=== PATIENT | female | born 1995 | race American Indian/Alaskan Native ===

== ENCOUNTER 2020-07-10 03:54 | Emergency (ER) | payer OTHER ==
[2020-07-10] MEDS ORDERED: LORazepam 2 MG/ML VIAL IM STA (04:29)
--- NOTE | 2020-07-10 04:31 | Emergency Department Report ---
ED Anxiety HPI - General Chief Complaint: Anxiety Stated Complaint: ANXIETY/PANIC ATTACK Time Seen by Provider: 07/10/20 04:28 Source: patient, EMS Mode of arrival: Stretcher - History of Present Illness Initial Comments: 24-year-old female presents emergency department complaining of having a panic attack and anxiety flare after speaking with her sister on FaceTime and learning that her aunt has been in the hospital for the last 2 weeks with COVID-19. Patient states that no bad things were discovered about her other than the fact that she has been hospitalized. 6 that when she learned this information she began to feel her heart racing and and chest pressure and getting a little short of breath which continue to fluctuate since the onset and she has been having trouble calming down resulting in her calling EMS to bring to the hospital for further valuation and treatment options. She reports no fevers, chills, sweats, nausea, vomiting, trauma. No loss of consciousness Previous History of Same: Yes Severity: moderate, severe Quality: constant Provoking factors: emotional stress Improves With: nothing Worsens With: thinking about event Associated symptoms: shortness of breath. denies: diaphoresis, fever/chills, anorexia, malaise, seizure, syncope, weakness - Related Data Allergies/Adverse Reactions: Allergies Allergy/AdvReac Type Severity Reaction Status Date / Time No Known Allergies Allergy Unverified 07/10/20 04:28 ED Review of Systems ROS: Stated complaint: ANXIETY/PANIC ATTACK Other details as noted in HPI ED Past Medical Hx - Past Medical History Previous Medical History?: Yes Hx Psychiatric Treatment: Yes (Anxiety) - Surgical History Past Surgical History?: No - Social History Smoking Status: Never Smoker Substance Use Type: Marijuana ED Physical Exam - General Limitations: No Limitations General appearance: alert, in no apparent distress - Head Head exam: Present: atraumatic, normocephalic - Eye Eye exam: Present: normal appearance - ENT ENT exam: Present: normal exam, normal orophraynx, mucous membranes moist - Neck Neck exam: Present: normal inspection - Respiratory Respiratory exam: Present: normal lung sounds bilaterally. Absent: respiratory distress, wheezes, rales, rhonchi, chest wall tenderness, decreased breath sounds - Cardiovascular Cardiovascular Exam: Present: regular rate, normal rhythm. Absent: systolic murmur, diastolic murmur, rubs, gallop - GI/Abdominal GI/Abdominal exam: Present: soft, normal bowel sounds - Extremities Exam Extremities exam: Present: normal inspection - Back Exam Back exam: Present: normal inspection - Neurological Exam Neurological exam: Present: alert, oriented X3 - Psychiatric Psychiatric exam: Present: anxious. Absent: normal affect, normal mood, flat affect, manic, homicidal ideation, suicidal ideation - Skin Skin exam: Present: warm, dry, intact, normal color. Absent: rash ED Course Vital Signs 07/10/20 07/10/20 03:59 06:29 Temperature 98.2 F Pulse Rate 104 H 78 Respiratory 18 16 Rate Blood Pressure 107/75 Blood Pressure 112/67 [Left] O2 Sat by Pulse 100 100 Oximetry ED Medical Decision Making - EKG Data EKG shows normal: sinus rhythm Rate: normal - EKG Data Interpretation: normal EKG 07/10/20 04:31 Heart rate 86 - Medical Decision Making This patient presents with symptoms consistent with acute anxiety reaction/panic attack. Low suspicion for acute coronary process including ACS, pulmonary embolism, thoracic aortic dissection. Denies any ingestions or any other medical complaints. No evidence of alcohol withdrawal symptoms. Presentation not consistent with overt toxic syndrome, ingestion given history and physical. Presentation not consistent with organic or medical emergency at this time. No acute indication for psychiatric consultation. Cautious return precautions discussed with full understanding. The patient is is is resting comfortably no acute distress panic attack appears to be totally resolved as she is no longer clutching her chest and no longer reporting any shortness of breath palpitations or any sense of impending doom Plan: Medication, psych follow-up PRN Critical care attestation.: If time is entered above; I have spent that time in minutes in the direct care of this critically ill patient, excluding procedure time. ED Disposition Clinical Impression: Anxiety, Panic attack Disposition: DC-01 TO HOME OR SELFCARE Is pt being admited?: No Does the pt Need Aspirin: No Condition: Stable Instructions: Panic Attack, [id number], Managing Anxiety, Adult, Information About Deep Brain Stimulation Referrals: NORMA GRAY MD [Staff Physician] - 3-5 Days
--- NOTE | 2020-07-10 05:59 | XRay Report ---
CHEST 2 VIEWS INDICATION / CLINICAL INFORMATION: cp. COMPARISON: None available. FINDINGS: SUPPORT DEVICES: None. HEART / MEDIASTINUM: No significant abnormality. LUNGS / PLEURA: No significant pulmonary or pleural abnormality. No pneumothorax. ADDITIONAL FINDINGS: No significant additional findings. IMPRESSION: 1. No acute findings. Signer Name: Humberto Zepeda MD Signed: 07/10/2020 5:55 AM Workstation Name: [id number]
[2020-07-10 06:48] VITALS: BP 112/67
== END 2020-07-10 06:53 | disposition home or self-care (01) ==
LOC: ED 03:54
DX: F41.0 Panic disorder [episodic paroxysmal anxiety] (principal); F41.9 Anxiety disorder, unspecified; F12.90 Cannabis use, unspecified, uncomplicated; Z79.899 Other long term (current) drug therapy
CPT/HCPCS: 71046; 93005; 96372; 99283; J2060

== ENCOUNTER 2020-08-03 18:02 | Emergency (ER) | payer OTHER ==
[2020-08-03 18:40] VITALS: BP 107/86
[2020-08-03 19:29] LABS: Basophils # (Auto) 0.1 K/mm3 (0.0-0.1); Basophils % (Auto) 1.4 % (0.0-1.8); Eosinophils # (Auto) 0.2 K/mm3 (0.0-0.4); Eosinophils % (Auto) 3.3 % (0.0-4.3); Hematocrit 36.7 % (30.3-42.9); Lymphocytes # (Auto) 2.6 K/mm3 (1.2-5.4); Lymphocytes % (Auto) 37.5 % (13.4-35.0); Mean Corpuscular HGB Conc 35 % (30-34); Mean Corpuscular Volume 84 fl (79-97); Monocytes # (Auto) 0.6 K/mm3 (0.0-0.8); Monocytes % (Auto) 8.3 % (0.0-7.3); Platelet Count 297 K/mm3 (140-440); Red Cell Distribution Width 12.6 % (13.2-15.2)
--- NOTE | 2020-08-03 19:55 | Emergency Department Report ---
ED Chest Pain HPI - General Chief Complaint: Chest Pain Stated Complaint: CHEST PAINS Time Seen by Provider: 08/03/20 18:37 Source: patient Mode of arrival: Ambulatory Limitations: No Limitations - History of Present Illness Initial Comments: This is a 24-year-old female nontoxic, well nourished in appearance, no acute signs of distress presents to the ED with c/o of intermittent midsternal chest pain with shortness of breath. Patient stated that she is currently anxious and has history of anxiety. Patient stated she is out of her Klonopin medication and is requesting for refills. Patient currently denies any chest pain or shortness of breath but stated does have some anxiety. Patient denies following up with PCP but stated went to emergency room and get refills of Klonopin. Patient stated every time she gets anxious she develops the symptoms of intermittent chest pain or shortness of breath. Patient denies any suicidal homicidal ideation. Denies any depression. Patient denies any upper respiratory symptoms. Patient denies any shortness of breath, chest pain, hemoptysis, fever, chills, nausea, vomiting, headache, stiff neck, numbness, tingling, abdominal pain. Patient denies pleuritic chest pain. Patient denies any recent travels or long car rides. Patient denies any recent surgeries or any sick contacts. Patient denies any drug allergies or significant past medical history. MD Complaint: chest pain -: days(s) Pain Radiation: none Severity scale (0 -10): 0 Consistency: intermittent, now resolved Improves With: nothing Worsens With: nothing re: denies: nausea, vomting, diaphoresis, dyspnea, sense of impending doom Other Symptoms: denies: cough, fever, syncope, rash, acid taste in mouth, leg swelling, palpitations, burping Treatments Prior to Arrival: none Aspirin use within the Past 7 Days: (0) No - Related Data Allergies Allergy/AdvReac Type Severity Reaction Status Date / Time No Known Allergies Allergy Unverified 07/10/20 04:28 Heart Score - HEART Score History: Slightly suspicious EKG: Normal Age: < 45 Risk factors: No known risk factors Troponin: < normal limit HEART Score: 0 ED Review of Systems ROS: Stated complaint: CHEST PAINS Other details as noted in HPI Constitutional: denies: chills, fever Eyes: denies: eye pain, eye discharge, vision change ENT: denies: ear pain, throat pain Respiratory: shortness of breath. denies: cough, SOB with exertion, SOB at rest, wheezing Cardiovascular: chest pain. denies: palpitations, dyspnea on exertion, orthopnea, edema, syncope, paroxysmal nocturnal dyspnea Endocrine: no symptoms reported Gastrointestinal: denies: abdominal pain, nausea, diarrhea Genitourinary: denies: urgency, dysuria, discharge Musculoskeletal: denies: back pain, joint swelling, arthralgia Skin: denies: rash, lesions Neurological: denies: headache, weakness, paresthesias Psychiatric: anxiety. denies: depression, auditory hallucinations, visual hallucinations, homicidal thoughts, suicidal thoughts Hematological/Lymphatic: denies: easy bleeding, easy bruising ED Past Medical Hx - Past Medical History Previous Medical History?: Yes Hx Psychiatric Treatment: Yes (Anxiety) - Social History Smoking Status: Never Smoker Substance Use Type: Marijuana ED Physical Exam - General Limitations: No Limitations General appearance: alert, in no apparent distress - Head Head exam: Present: atraumatic, normocephalic - Eye Eye exam: Present: normal appearance - Neck Neck exam: Present: normal inspection, full ROM. Absent: tenderness, men ingismus, lymphadenopathy - Respiratory Respiratory exam: Present: normal lung sounds bilaterally. Absent: respiratory distress, wheezes, rales, rhonchi, stridor, chest wall tenderness, accessory muscle use, decreased breath sounds, prolonged expiratory - Cardiovascular Cardiovascular Exam: Present: regular rate, normal rhythm, normal heart sounds. Absent: bradycardia, tachycardia, irregular rhythm, systolic murmur, diastolic murmur, rubs, gallop - GI/Abdominal GI/Abdominal exam: Present: soft, normal bowel sounds. Absent: distended, tenderness, guarding, rebound, rigid, diminished bowel sounds - Extremities Exam Extremities exam: Present: normal inspection, full ROM - Back Exam Back exam: Present: normal inspection, full ROM. Absent: tenderness, CVA tenderness (R), CVA tenderness (L), muscle spasm, paraspinal tenderness, vertebral tenderness, rash noted - Neurological Exam Neurological exam: Present: alert, oriented X3, normal gait - Psychiatric Psychiatric exam: Present: normal affect, anxious. Absent: depressed, agitated, flat affect, manic, homicidal ideation, suicidal ideation - Skin Skin exam: Present: warm, dry, intact, normal color. Absent: rash ED Course Vital Signs 08/03/20 18:35 Temperature 99.0 F Pulse Rate 77 Respiratory 18 Rate Blood Pressure 107/86 O2 Sat by Pulse 99 Oximetry - Reevaluation(s) Reevaluation #1: 08/03/20 19:53 Patient is speaking in full sentences with no signs of distress noted. GABRIEL score - Gabriel Score Age > 65: (0) No Aspirin use within the Past 7 Days: (0) No 3 or more CAD Risk Factors: (0) No 2 or more Angina events in past 24 hrs: (0) No Known CAD with more than 50% Stenosis: (0) No Elevated Cardiac Markers: (0) No ST Deviation Greater than 0.5mm: (0) No GABRIEL Score: 0 ED Medical Decision Making - Lab Data Result diagrams: 08/03/20 18:58 08/03/20 18:58 Lab Results 08/03/20 08/03/20 08/03/20 Range/Units 18:58 18:58 18:58 WBC 6.8 (4.5-11.0) K/mm3 RBC 4.40 (3.65-5.03) M/mm3 Hgb 13.0 (10.1-14.3) gm/dl Hct 36.7 (30.3-42.9) % MCV 84 (79-97) fl MCH 30 (28-32) pg MCHC 35 H (30-34) % RDW 12.6 L (13.2-15.2) % Plt Count 297 (140-440) K/mm3 Lymph % (Auto) 37.5 H (13.4-35.0) % Borden % (Auto) 8.3 H (0.0-7.3) % Eos % (Auto) 3.3 (0.0-4.3) % Baso % (Auto) 1.4 (0.0-1.8) % Lymph # (Auto) 2.6 (1.2-5.4) K/mm3 Borden # (Auto) 0.6 (0.0-0.8) K/mm3 Eos # (Auto) 0.2 (0.0-0.4) K/mm3 Baso # (Auto) 0.1 (0.0-0.1) K/mm3 Seg Neutrophils % 49.5 (40.0-70.0) % Seg Neutrophils # 3.4 (1.8-7.7) K/mm3 Sodium 137 (137-145) mmol/L Potassium 3.6 (3.6-5.0) mmol/L Chloride 102.8 (98-107) mmol/L Carbon Dioxide 24 (22-30) mmol/L Anion Gap 14 mmol/L BUN 5 L (7-17) mg/dL Creatinine 0.9 (0.6-1.2) mg/dL Estimated GFR > 60 ml/min BUN/Creatinine Ratio 6 % Glucose 89 (65-100) mg/dL Calcium 9.4 (8.4-10.2) mg/dL Total Bilirubin 0.50 (0.1-1.2) mg/dL AST 22 (5-40) units/L ALT 13 (7-56) units/L Alkaline Phosphatase 59 (35-129) units/L Troponin T < 0.010 (0.00-0.029) ng/mL Total Protein 7.0 (6.3-8.2) g/dL Albumin 4.2 (3.9-5) g/dL Albumin/Globulin Ratio 1.5 % HCG, Qual Negative (Negative) - EKG Data 08/03/20 20:33 Normal sinus rhythm at [address] or T wave normalities. Reviewed and signed by . - Radiology Data [facility] [address] [place] [address] XRay Report Signed Patient: ROHITH NEGRON MR#: [id number] : 1995 Acct:[id number] Age/Sex: 24 / F ADM Date: 08/03/20 Loc: ED Attending Dr: Ordering Physician: JEFF ANM NP Date of Service: 08/03/20 Procedure(s): XR chest routine 2V Accession Number(s): [id number] cc: JEFF NAM NP Fluoro Time In Minutes: CHEST 2 VIEWS INDICATION: Chest Pain. COMPARISON: 07/10/2020 FINDINGS: SUPPORT DEVICES: None. HEART: Within normal limits. LUNGS/PLEURA: No acute air space or interstitial disease. No pneumothorax. ADDITIONAL FINDINGS: None. IMPRESSION: 1. No acute findings. Signer Name: Johnathon Ely MD Signed: 08/03/2020 7:52 PM Workstation Name: [id number] Transcribed By: ZANE Dictated By: Johnathon Ely MD Electronically Authenticated By: Johnathon Ely MD Signed Date/Time: 08/03/201951 DD/ 51 TD/TT: - Medical Decision Making This is a 24-year-old female that presents with atypical chest pain mostly secondary to anxiety. Patient is stable and was examined by me. GABRIEL and HEART score 0 pints. PERC score for DVT/SVT/PE 0 points. EKG normal sinus rhythm with no significant changes in ST. Chest xray dictated by the radiologist. PAtient is notified of the Xray report with no questions noted. Labs within normal limits. Negative troponin. Patient received Klonopin in the ED which stated symptoms has resolved and impreoved prior to discharge. Patient was educated on anxiety self control. Due to chronic pain being a schedule II medication, patient was instructed that she must follow-up with a psychiatrist or PCP for medication refill. Patient currently does not present with anxiety attack or unable to function. Patient was instructed to Follow-up with a primary care/sport internship doctor in 2 days or if symptoms worsen and continue return to emergency room as soon as possible. At time of discharge, the patient does not seem toxic or ill in appearance. No acute signs of distress noted. Patient agrees to discharge treatment plan of care. No further questions noted by the patient. Critical care attestation.: If time is entered above; I have spent that time in minutes in the direct care of this critically ill patient, excluding procedure time. ED Disposition Clinical Impression: Atypical chest pain, Anxiety Disposition: DC-01 TO HOME OR SELFCARE Is pt being admited?: No Does the pt Need Aspirin: No Condition: Stable Instructions: Nonspecific Chest Pain, Adult, Managing Anxiety, Adult Additional Instructions: Follow-up with a primary care/sport internship doctor in 2 days or if symptoms worsen and continue return to emergency room as soon as possible. Referrals: NADIA العراقي MD [Referring] - 3-5 Days ECTOR CHRISTIANSON MD [Staff Physician] - 3-5 Days [facility] [Provider Group] - 3-5 Days [facility] [Outside] - 3-5 Days Forms: Work/School Release Form(ED)
[2020-08-03 19:59] LABS: Alanine Aminotransferase 13 units/L (7-56); Albumin 4.2 g/dL (3.9-5); BUN/Creatinine Ratio 6; Blood Urea Nitrogen 5 mg/dL (7-17); Calcium 9.4 mg/dL (8.4-10.2); Hemolysis Index 5
[2020-08-03] MEDS ORDERED: clonazePAM 0.5 MG TAB PO ONE (20:32)
== END 2020-08-03 21:00 | disposition home or self-care (01) ==
LOC: ED 18:02
DX: R07.89 Other chest pain (principal); F41.9 Anxiety disorder, unspecified; F12.10 Cannabis abuse, uncomplicated
CPT/HCPCS: 36415; 71046; 80053; 84484; 84703; 85025; 93005; 99283

== ENCOUNTER 2020-08-05 14:05 | Emergency (ER) | payer OTHER ==
--- NOTE | 2020-08-05 16:13 | XRay Report ---
. XR chest 1V ap INDICATION / CLINICAL INFORMATION: chest pain COMPARISON: 08/03/2020 FINDINGS: SUPPORT DEVICES: None. HEART / MEDIASTINUM: No significant abnormality. LUNGS / PLEURA: Lungs are clear. Costophrenic sulci are sharp. No pneumothorax. ADDITIONAL FINDINGS: No significant additional findings. IMPRESSION: 1. No acute findings. Signer Name: Emre Rodriguez MD Signed: 08/05/2020 4:08 PM Workstation Name: [email or web address]
[2020-08-05] MEDS ORDERED: IBUPROFEN 600 MG TAB PO ONE (16:24)
--- NOTE | 2020-08-05 16:29 | Emergency Department Report ---
ED General Adult HPI - General Chief complaint: Dyspnea/Respdistress Stated complaint: CP/BRIDGER Time Seen by Provider: 08/05/20 14:21 Source: patient Mode of arrival: Ambulatory Limitations: No Limitations - History of Present Illness Initial comments: Patient is a 24-year-old female presents emergency room with complaints of intermittent panic attacks that have been occurring for 2 months. She states last night she was in bed watching a movie when she began to feel some chest tightness, felt like she was breathing fast, felt anxious. She states that the more anxious she got the more she had the discomfort. She denies any pleuritic chest pain, leg swelling, exertional chest pain, syncope, lightheadedness, dizziness, hemoptysis, diaphoresis, nausea, vomiting, diarrhea, radiation of the pain, cough. She has a past medical history of anxiety and has previously been prescribed clonazepam. She states that she ran out of the clonazepam and is r equesting a refill. No allergies to medications. Patient was evaluated in the emergency department 2 days ago and had a full work-up at that time including chest x-ray, EKG, labs. EKG within normal limits, chest x-ray no acute process, troponin was negative, labs were normal, no dehydration or anemia. She states that she was previously smoking marijuana and she believes that was making her anxiety worse so she recently stopped. - Related Data Allergies Allergy/AdvReac Type Severity Reaction Status Date / Time No Known Allergies Allergy Unverified 07/10/20 04:28 ED Review of Systems ROS: Stated complaint: CP/BRIDGER Other details as noted in HPI Comment: All other systems reviewed and negative ED Past Medical Hx - Past Medical History Hx Psychiatric Treatment: Yes (Anxiety) - Surgical History Additional Surgical History: L foot - Social History Smoking Status: Never Smoker Substance Use Type: Marijuana ED Physical Exam - General Limitations: No Limitations General appearance: alert, in no apparent distress - Head Head exam: Present: atraumatic, normocephalic - Eye Eye exam: Present: normal appearance - ENT ENT exam: Present: mucous membranes moist - Respiratory Respiratory exam: Present: normal lung sounds bilaterally. Absent: respiratory distress, wheezes, rales, rhonchi, stridor, chest wall tenderness, accessory muscle use, decreased breath sounds, prolonged expiratory - Cardiovascular Cardiovascular Exam: Present: regular rate, normal rhythm, normal heart sounds. Absent: systolic murmur, diastolic murmur, rubs, gallop - Neurological Exam Neurological exam: Present: alert, oriented X3 - Psychiatric Psychiatric exam: Present: normal affect, normal mood - Skin Skin exam: Present: warm, dry, intact ED Course Vital Signs 08/05/20 08/05/20 14:12 16:34 Temperature 98.7 F Pulse Rate 92 H 77 Respiratory 18 17 Rate Blood Pressure 112/83 Blood Pressure 123/76 [Right] O2 Sat by Pulse 98 100 Oximetry ED Medical Decision Making - Lab Data Vital Signs (72 hours) 08/05/20 08/05/20 14:12 16:34 Temperature 98.7 F Pulse Rate 92 H 77 Respiratory 18 17 Rate Blood Pressure 112/83 Blood Pressure 123/76 [Right] O2 Sat by Pulse 98 100 Oximetry - Radiology Data Radiology results: report reviewed Ordering Physician: THUAN GRANT Date of Service: 08/05/20 Procedure(s): XR chest 1V ap Accession Number(s): [id number] cc: THUAN GRANT Fluoro Time In Minutes: . XR chest 1V ap INDICATION / CLINICAL INFORMATION: chest pain COMPARISON: 08/03/2020 FINDINGS: SUPPORT DEVICES: None. HEART / MEDIASTINUM: No significant abnormality. LUNGS / PLEURA: Lungs are clear. Costophrenic sulci are sharp. No pneumothorax. ADDITIONAL FINDINGS: No significant additional findings. IMPRESSION: 1. No acute findings. Signer Name: Emre Rodriguez MD Signed: 08/05/2020 4:08 PM Workstation Name: [id number] Transcribed By: CS Dictated By: Emre Rodriguez MD Electronically Authenticated By: Emre Rodriguez MD Signed Date/Time: 08/05/201607 DD/ 07 TD/TT: Print Cancel - Medical Decision Making Patient is a 24-year-old female presents emergency room with complaints of intermittent panic attacks that have been occurring for 2 months. She states last night she was in bed watching a movie when she began to feel some chest tightness, felt like she was breathing fast, felt anxious. She states that the more anxious she got the more she had the discomfort. She denies any pleuritic chest pain, leg swelling, exertional chest pain, syncope, lightheadedness, dizziness, hemoptysis, diaphoresis, nausea, vomiting, diarrhea, radiation of the pain, cough. She has a past medical history of anxiety and has previously been prescribed clonazepam. She states that she ran out of the clonazepam and is requesting a refill. No allergies to medications. Patient was evaluated in the emergency department 2 days ago and had a full work-up at that time including chest x-ray, EKG, labs. EKG within normal limits, chest x-ray no acute process, troponin was negative, labs were normal, no dehydration or anemia. She states that she was previously smoking marijuana and she believes that was making her anxiety worse so she recently stopped. Vitals are normal. Chest x-ray ordered prior to my examination and shows 1. No acute findings. PERC criteria negative for PE. Her chest pain is atypical and appears likely consistent with her panic attack/anxiety. Advised patient that we cannot refill her clonazepam due to the addictive properties this needs to be managed by her primary care provider or a psychiatrist and needs to be managed by one provider. Patient states that she has made appointment with a primary care doctor. Will refer patient to the [facility] regarding her anxiety. advised pt Please keep your appointment with your primary care doctor. Please follow-up with the [facility] regarding your anxiety. Please practice healthy coping mechanisms including meditation, exercise, watching videos to calm herself down. Please avoid marijuana use, tobacco use, caffeine use, alcohol use. Return to emergency room for any new or worsening symptoms. Critical care attestation.: If time is entered above; I have spent that time in minutes in the direct care of this critically ill patient, excluding procedure time. ED Disposition Clinical Impression: Atypical chest pain, Anxiety Disposition: DC-01 TO HOME OR SELFCARE Is pt being admited?: No Does the pt Need Aspirin: No Condition: Stable Instructions: Nonspecific Chest Pain, Adult, Managing Anxiety, Adult Additional Instructions: Please keep your appointment with your primary care doctor. Please follow-up with the [facility] regarding your anxiety. Please practice healthy coping mechanisms including meditation, exercise, watching videos to calm herself down. Please avoid marijuana use, tobacco use, caffeine use, alcohol use. Return to emergency room for any new or worsening symptoms. Referrals: your, primary care doctor [Other] - 2-3 Days [facility] [Outside] - 2-3 Days Time of Disposition: 16:28 Print Language: SINGAPORE[place]
[2020-08-05 16:36] VITALS: BP 123/76
== END 2020-08-05 16:37 | disposition home or self-care (01) ==
LOC: ED 14:05
DX: R07.89 Other chest pain (principal); F41.9 Anxiety disorder, unspecified; F12.10 Cannabis abuse, uncomplicated; Z98.890 Other specified postprocedural states
CPT/HCPCS: 71045